=== PATIENT | male | born 1995 | race Two or more races ===

== ENCOUNTER 2017-04-30 13:24 | Emergency (ER) | payer OTHER ==
[~2017-04-30] VITALS: Ht 177.8 cm; Wt 88.0 kg
[2017-04-30 14:33] LABS: HEMATOCRIT 45.4 % (39.2-51.8); HEMOGLOBIN 15.7 g/dL (13.7-18.0)
[2017-04-30 14:49] LABS: ASPARTATE AMINO TRANSFERASE 20 U/L (15-37); BLOOD UREA NITROGEN 14 mg/dL (7-18)
[2017-04-30 14:50] LABS: IS PT STATUS REG ER OR PRE ER? YES
[2017-04-30 16:17] VITALS: BP 109/67
== END 2017-04-30 16:19 | disposition home or self-care (01) ==
LOC: ED 14:30
DX: R00.2 Palpitations (principal)
CPT/HCPCS: 36415; 71010; 80053; 83690; 84436; 84443; 84484; 85025; 93005; 99285